=== PATIENT | male | born 2000 | race Caucasian/White ===

== ENCOUNTER 2020-10-14 14:45 | Emergency (ER) | payer OTHER, SELFPAY ==
--- NOTE | ~2020-10-14 | XR_ITS ---
XR chest 2V DATE: 10/14/2020 15:34 INDICATION: Cough, fever TECHNIQUE: PA and lateral views COMPARISON: None FINDINGS: Bilateral hyperinflation. No pulmonary infiltrate or consolidation, pleural effusion or pul monary vascular congestion or pneumothorax. Normal heart size. No hilar or mediastinal enlargement. Included skeletal structures are unremarkable. IMPRESSION: Bilateral hyperinflation; otherwise no active cardiopulmonary disease Reviewed, dictated and finalized at location A. [employer] IMPRESSION: Bilateral hyperinflation; otherwise no active cardiopulmonary disea se
[2020-10-14 14:55] VITALS: BP 150/92; PULSE 97; RESP 16; TEMP 37.1; O2SAT 99
--- NOTE | 2020-10-14 15:17 | ED.URI ---
HPI - URI/Sore Throat General Chief Complaint: Upper Respiratory Infection Stated Complaint: Chest Pain,Cough Time Seen by Provider: 10/14/20 15:17 Source: patient Mode of arrival: ambulatory Limitations: no limitations History of Present Illness HPI Narrative: 19 yo male presents to the [facility] with C/O feeling feverish, productive cough, nausea. Patient is not a great historian. Has not taken his temperature. Has not taking any medications except what has been prescribed. reports increased stress and anxiety. Related Data Home Medications Medication Instructions Recorded Confirmed buspirone mg 10/14/20 mirtazapine mg 10/14/20 Allergies Allergy/AdvReac Type Severity Reaction Status Date / Time No Known Allergies Allergy Unverified 12/30/12 14:24 Review of Systems Review of Systems: Narrative: CONSTITUTIONAL: Reports fever, chills, or sweats. EYES: Denies visual changes, redness, or discharge. ENT: Reports rhinorrhea. denies congestion, sore throat, or otalgia. CARDIOVASCULAR: Denies chest pain, palpitations, or edema. Chest wall pain right sternal border. RESPIRATORY: Positive productive cough. denies dyspnea. GASTROINTESTINAL: Denies abdominal pain, nausea, vomiting, or diarrhea. GENITOURINARY: Denies dysuria or hematuria. SKIN: Denies rash or itching. MUSCULOSKELETAL: Denies back pain, joint pain, or myalgia. NEUROLOGIC: Denies headache, numbness, or weakness. PSYCHIATRIC: Denies anxiety or depression at this time. Also denies suicidal and homicidal ideation All other systems reviewed are negative, except as documented in HPI. [facility] Past Medical History Medical History (Updated 10/14/20 @ 19:14 by Claudia Stewart) Anxiety Comments At the time of my signature, I reviewed and agree with the nursing past medical, surgical, social, and family history. There is no relevant family history pertinent to the patient complaint. Exam Narrative: Exam Narrative: GENERAL: This is a well-nourished, well-developed patient, in no apparent distress. HEAD: normocephalic, atraumatic. EYES: PERRL. Sclera clear/white. Vision is grossly intact. EARS: External ears normal, auditory canals clear and without drainage, TMs normal without perforation. Hearing grossly intact. NOSE: External nose normal with no obvious nasal discharge, nares without redness, no rhinorrhea. THROAT: Mucous membranes moist, posterior pharynx clear. NECK: Neck supple, non-tender without lymphadenopathy, masses or thyromegaly. CARDIOVASCULAR: Regular rate and rhythm without murmurs, gallops, or rubs. Right sternal border tenderness with palpation. RESPIRATORY: Clear to auscultation. Breath sounds equal bilaterally. No wheezes, rales, or rhonchi. GASTROINTESTINAL: Abdomen soft, non-tender, nondistended. Bowel sounds are active. SKIN: warm, intact with no suspicious lesions or rash, good texture and turgor. NEURO: awake, alert, and oriented to person, place and time. There were no obvious focal neurologic abnormalities. EXTREMITIES: No clubbing, cyanosis, or edema. No joint tenderness, effusion, or edema noted. BACK: Nontender without deformity or crepitance. No flank tenderness. Course Vital Signs Vital signs: Vital Signs Temperature 98.7 F 10/14/20 14:55 Pulse Rate 97 10/14/20 14:55 Respiratory Rate 16 10/14/20 14:55 Blood Pressure 150/92 H 10/14/20 14:55 Pulse Oximetry 99 10/14/20 14:55 Temperature 98.7 F 10/14/20 14:55 Pulse Rate 97 10/14/20 14:55 Respiratory Rate 16 10/14/20 14:55 Blood Pressure 150/92 H 10/14/20 14:55 Pulse Oximetry 99 10/14/20 14:55 Reviewed. Blood pressure mildly elevated. States he will follow up with his primary care provider MDM - URI/Sore Throat Differential Diagnosis Differential diagnosis: Likely upper respiratory infection, otitis media, sinusitis, viral infection, bronchitis, influenza, pharyngitis and other (Pneumonia) Critical Care Time Critical Care Time Critical Ca
== END 2020-10-14 16:12 | disposition home or self-care (01) ==
PROVIDERS: Emergency Provider Nurse Practitioner; PCP Student in an Organized Health Care Education/Training Program
DX: M94.0 Chondrocostal junction syndrome [Tietze] (principal)
CPT/HCPCS: 71046; 99213; G0463